=== PATIENT | male | born 1965 | race Caucasian/White ===

== ENCOUNTER → 2022-10-12 | Outpatient (CLI) | payer BC ==
--- NOTE | 2022-10-12 11:12 | NM ---
EXAMINATION TYPE: NM stress cardiolite complete DATE OF EXAM: 10/12/2022 COMPARISON: NONE HISTORY: History of hypertension and family history of heart attack presents with chest pain and diff iculty in breathing. TECHNIQUE: After the intravenous administration of 10.1 mCi Tc 99m Sestamibi - Rest images obtained 45 minutes post injection. The patient exercised using a PAUL protocol and 1 minute prior to peak exercise was injected with 26.2 mCi Tc 99m Sestamibi - Stress images obtained 20 minutes post injecti on. FINDINGS: Targeted heart rate was achieved during performance of the study. Review of stress and rest SPECT nellie ges demonstrates no distinct perfusion abnormality. Gated analysis shows normal wall motion with an estimated left ventricular ejection fraction of 72 %. IMPRESSION: No scintigraphic evidence for reversible ischemia
--- NOTE | 2022-10-12 14:12 | CA ---
Exercise Stress Test Report Name: Gomez Dior Exam Date: 10/12/2022 09:59 Exam Location: [place] Stress Ht (in): 67 Wt (lb): 205 BSA: 2.04 Ordering Phys: Alejandra Aden DO Referring Phys: Alejandra Aden DO Technologist: Jessica Gomez Age: 57 Gender: M : 1965 Procedure CPT: Indications: I20.9,I10 ICD-10 Codes: Patient History: CHEST PAIN, DIFFICULTY IN BREATHING, HTN, FAMILY HX OF HEART DISEASE Medications: LISINOPRIL,,,,,, ADVIL,,,,, Meds past 24 hrs: Pretest Chest Pain: STRESS TEST Kodi Protocol Exercise Duration (min:sec): 09:[address] Depressions (mm): Angina Score: Eddy Score: Resting HR (bpm): 78 Peak HR (bpm): 141 Resting BP (mmHg): 126 / 78 Peak BP (mmHg): 187 / 65 MPHR: 161 Target HR: 137 % MPHR: 88 METS: 10.5 Total Dose: Peak Dose: Atropine: Double Product: 56923 BP Response: Stress Termination: MAX EXERTION/TARGET HR Stress Symptoms: CHEST PRESSURE/BIGEMINY Stress Summary: ECG ANALYSIS Resting ECG: Stress ECG: CONCLUSIONS Excellent exercise tolerance Normal EKG in response to exercise Dr. Luis Martínez MD (Electronically Signed) Final Date: 12 October 2022 14:11
== END | disposition home or self-care (01) ==
LOC: RADNMMAIN 08:24
PROVIDERS: ATTEND Family Medicine
DX: I20.9 Angina pectoris, unspecified (principal); I10 Essential (primary) hypertension; Z82.49 Family history of ischemic heart disease and other diseases of the circulatory system
CPT/HCPCS: 93017; 78452; A9500

== ENCOUNTER 2022-10-29 08:20 | Day surgery (SDC) | payer BC ==
[~2022-10-29 08:20] MED LIST: LACTATED RINGERS 1,000 ML IV SCH; LIDOCAINE 1% (10MG/ML) FOR IV START INTRADERMA PRN
[2022-10-29] MEDS ORDERED: PROPOFOL 10 MG/ML 20 ML VIAL IV ONE (08:58)
--- NOTE | 2022-10-29 09:04 | P.GSHP ---
History of Present Illness H&P Date: 10/29/22 Chief Complaint: Screening colonoscopy This a 57-year-old male presents today for screening colonoscopy. She denies any significant GI complaints. Past Medical History Past Medical History: Chest Pain / Angina, GERD/Reflux, Hypertension Additional Past Medical History / Comment(s): states blood with bm., states recent echo, stress test and ekg for chestpain. History of Any Multi-Drug Resistant Organisms: None Reported Past Surgical History: Tonsillectomy Past Anesthesia/Blood Transfusion Reactions: No Reported Reaction Past Psychological History: ADD/ADHD Smoking Status: Never smoker Past Alcohol Use History: Rare Past Drug Use History: None Reported - Past Family History Mother Additional Family Medical History / Comment(s): heart failure Father Additional Family Medical History / Comment(s): heart failure Medications and Allergies Home Medications Medication Instructions Recorded Confirmed Type lisinopriL [Zestril] 10 mg PO DAILY 10/27/22 10/29/22 History Allergies Allergy/AdvReac Type Severity Reaction Status Date / Time No Known Allergies Allergy Verified 10/29/22 08:57 Surgical - Exam Vital Signs Temp Pulse Resp BP Pulse Ox 97.3 F L 76 16 145/73 95 10/29/22 08:50 10/29/22 08:50 10/29/22 08:50 10/29/22 08:50 10/29/22 08:50 - General well developed, well nourished, no distress - Eyes PERRL - ENT normal pinna - Neck no masses - Respiratory normal expansion - Cardiovascular Rhythm: regular - Abdomen Abdomen: soft, non tender Assessment and Plan Assessment: We'll perform screening colonoscopy.
--- NOTE | 2022-10-29 09:18 | P.OP ---
Date of Procedure: 10/29/22 Preoperative Diagnosis: Screening colonoscopy Postoperative Diagnosis: Mild diverticulosis Procedure(s) Performed: Colonoscopy Anesthesia: MAC Surgeon: Leonard Mitchell Pathology: none sent Condition: stable Disposition: PACU Description of Procedure: Patient's placed on the endoscopy table in the lateral position. He received IV sedation. Digital rectal exam was performed. This revealed no ebonized. The prostate was symmetric without nodules. Flexible colonoscope was then placed patient anus and passed throughout the entire colon. The ileocecal valve was visualized. The cecum, ascending and transverse colon appeared normal. The descending and sigmoid colon had some mild diverticulosis. Scope was then brought back the rectum this appeared normal. Scope withdrawn for patient.
== END 2022-10-29 10:04 | disposition home or self-care (01) ==
LOC: ORWHC2ENDO 08:20
PROVIDERS: ATTEND Surgery
DX: Z12.11 Encounter for screening for malignant neoplasm of colon (principal); K57.30 Diverticulosis of large intestine without perforation or abscess without bleeding; I10 Essential (primary) hypertension; K21.9 Gastro-esophageal reflux disease without esophagitis; Z79.899 Other long term (current) drug therapy; Z82.49 Family history of ischemic heart disease and other diseases of the circulatory system
CPT/HCPCS: 45378; J2704

== ENCOUNTER → 2025-03-30 | Outpatient (CLI) | payer BC ==
--- NOTE | 2025-03-30 13:23 | CT ---
CT urogram HISTORY: Hematuria COMPARISON: None TECHNIQUE: Multiple axial images are obtained through the abdomen and pelvis before and after the une ventful administration of nonionic IV contrast. Postcontrast delayed images were obtained. FINDINGS: Lung bases are clear. On the pre-IV contrast images, there are no renal calcifications or ureteral calcifications. There a re no gallstones. The gallbladder is normal and there is no distention or biliary ductal dilatation. There are no focal masses within the liver, pancreas, spleen or adrenal glands and there is no organo megaly. Kidneys excrete contrast promptly and symmetrically and there is no solid renal mass, hydronephrosis or filling defect within the renal collecting systems, ureters or urinary bladder. There is mild pros tatic hypertrophy with mild mass effect on the bladder base. The bowel loops are normal in caliber and there is no dilatation or obstruction. No inflammatory cole ges are identified in the bowel wall or mesentery. There is no free intraperitoneal air or fluid. There is no pelvic mass, free fluid, abscess or adenopathy. There are no focal osseous lesions. There is multilevel degenerative disc disease and lumbar spine gr eatest in the moderate to severe at the L5-S1 level. IMPRESSION: 1. No solid renal mass, renal calcification, hydronephrosis or filling defect within the renal collec ting systems or ureters. 2. Mild prostatic hypertrophy with mild mass effect on the bladder base. [facility], , 03/30/2025 1:21 PM
== END | disposition home or self-care (01) ==
LOC: RADCTMAIN 12:18
PROVIDERS: ATTEND Family Medicine
DX: N40.0 Benign prostatic hyperplasia without lower urinary tract symptoms (principal); R31.9 Hematuria, unspecified
CPT/HCPCS: 74178; 74400; Q9967